=== PATIENT | male | born 1940 | race Caucasian/White ===

== ENCOUNTER 2018-11-30 05:36 | Observation (INO) | payer BC, MEDICARE ==
[~2018-11-30] VITALS: Ht 172.7 cm; Wt 112.7 kg
[2018-11-30] VITALS (22 sets, daily range): BP systolic 102–121; BP diastolic 57–71; PULSE 0–106; RESP 12–26; Ht 172.7 cm; Wt 112.7 kg
[2018-11-30] MEDS ORDERED: RANO500T2 PO (07:04)
[2018-11-30] MEDS ORDERED: CRES20 PO (07:04)
[2018-11-30] MEDS ORDERED: METO-336 PO (07:05)
[2018-11-30] MEDS ORDERED: CLOP75TA27 PO (07:05)
[2018-11-30] MEDS ORDERED: EZET10TA31 PO (07:05)
[2018-11-30] MEDS ORDERED: GLIM4TAB PO (07:05)
[2018-11-30] MEDS ORDERED: FER325 PO (07:06)
[2018-11-30] MEDS ORDERED: ASPI81TA52 PO (07:06)
[2018-11-30] MEDS ORDERED: METF100010 PO (07:06)
[2018-11-30] MEDS ORDERED: IODIXANOL LOCM 100 ML BTL ONE (07:28)
[2018-11-30] MEDS ORDERED: FENTAnyl 50 MCG/ML VIAL ONE (07:28)
[2018-11-30] MEDS ORDERED: SOD CHLORIDE 0.9% 500 ML ONE (07:28)
[2018-11-30] MEDS ORDERED: LIDOCAINE 1% (MDV) 20 ML INJ ONE (07:28)
[2018-11-30] MEDS ORDERED: MIDAZOLAM 1 MG/ML 2 ML INJ ONE (07:28)
[2018-11-30] MEDS ORDERED: VERAPAMIL 5 MG INJ ONE (08:19)
[2018-11-30] MEDS ORDERED: NITROGLYCERIN (IC) 100 MCG/ML INJ ONE (08:19)
[2018-11-30] MEDS ORDERED: IOHEXOL 350MG/ML 50 ML BTL ONE (08:38)
[2018-11-30] MEDS ORDERED: BIVALIRUDIN 250MG /NS 50 ML 100 ML IVPB ONE (08:38)
[2018-11-30] MEDS ORDERED: CLOPIDOGREL 300 MG TAB ONE (09:19)
[2018-11-30] MEDS ORDERED: ASPIRIN 81 MG TAB ONE (09:20)
[2018-11-30] MEDS ORDERED: SOD CHLORIDE 0.9% 1,000 ML IV SCH (09:24)
[2018-11-30] MEDS ORDERED: ACETAMINOPHEN 325 MG TAB PO PRN (09:30)
[2018-11-30] MEDS ORDERED: OXYCODONE/ACETAMINOPHEN (5/325) TAB PO PRN ×2 (09:30)
[2018-11-30] MEDS ORDERED: morphine 2 MG INJ IV PRN (09:30)
--- NOTE | 2018-11-30 09:38 | OPR ---
Date/Time of Note Date/Time of Note DATE: 11/30/18 TIME: 09: Operative Report Procedure Date: November 30, 2018 Preoperative Diagnosis ANGINA. ABNORMAL STRESS TEST Postoperative Diagnosis same Operation/Procedure Performed PCI LCX RI Surgeon see signature line Production Lead DONNELL Anesthesia Type: moderate sedation Estimated Blood Loss: minimal Transfusion none Specimen none Grafts/Implants none Complications none Procedure Description College Tutor: Mehdi Landa MD Indication: 78-year-old gentleman with history of coronary artery disease status post bypass surgery, PCI who has had recurrent refractory angina despite optimal medical therapy. Patient states also shows significant ischemia Procure performed: #1 left heart catheterization and selective right and left coronary angiogram #2 Right femoral angiogram and closure using a Perclose device 3. Successful PTCA and stenting of chronic total occlusion of ostial ramus intermediate using a 2.25 x 20 mm Synergy drug-eluting stent 4. Successful PTCA/stenting of the ostial left circumflex artery using a 2.5 x 16 mm Synergy drug-eluting stent 5. Selective left internal mammary artery angiography 6. Moderate sedation for more than 90 minutes Findings: 1. Left main: is moderate size. He has about 10 to 20% ostial stenosis and about 30 to 40% distal stenosis. 2. LAD: Is 100% occluded. HERRMANN to LAD is widely patent 3. Left circumflex artery: is nondominant. it has 90 % calcified stenosis ostially.---- .> 0% post PCI. OM1 appears to be chronically occluded which was also seen from previous angiography. No collaterals to it was noted to 4. RCA: is dominant. it has 100 % stenosis proximally RUTH to distal right coronary artery previously was noted to be patent. Angiography of this artery was not done to avoid contrast nephropathy 5. Ramus intermedius moderate-sized vessel. Has 100% occlusion ostially. After successful PTCA stenting of this lesion no significant residual stenosis left. 5. LVEDP is 12 with no significant gradient across the aortic valve Procedure in detail: Written informed consent with obtained after risks benefits and alternatives discussed with the patient in detail. risks including but not limited to risk of infection vascular complications, bleeding complications, OR stroke arrhythmia renal failure at even were discussed with the patient in detail. Patient was brought into the cardiac director of cardiac cath lab and placed in supine position. Right and left groin area was prepped and draped in regular sterile fashion and then he was in anesthetized using 1% lidocaine. Right femoral artery was cannulated and using modified seldinger technique a 6 Wolof sheath was placed in the femoral artery. Femoral angiogram was performed JL4 guiding catheter was advanced to engage the left main coronary artery angiographic view was obtained. JR4 catheter was advanced and engaged into the right coronary artery and angiographic view was obtained. Then the JR4 catheter was advanced to engage the left internal mammary artery angiography was obtained. We decided not to do geography of right internal mammary artery to we will consult nephrology since no ischemia was seen in that area he was previously noted to be patent. Then a car for was advanced to engage the left ventricle hemodynamics as recorded by pullback aortic pressure was measured. At this time we decided to perform PCI of the ostial left circumflex artery and ramus intermediate Artery. Sheath was changed to a 7 Wolof long sheath which was placed into the right femoral artery. A 7 Wolof Voda 3-/2 guiding catheter left main was advanced to engage the left main coronary artery. BMW wire was used and advanced across the lesion and placed distal to the lesion ramus intermediate with another engine pilot wire was used and advanced and crossed into the distal left circumflex artery. I used a 2.5 x 12 mm noncompliant balloon which was placed across the lesion in the left circumflex artery and then into the ramus intermediate and predilated the vessels. Then I used a 2.25 x 20 mm Synergy drug-eluting stent which was placed across the ostial ramus intermediate lesion and another 2.5 x 60 mm Synergy drug-eluting stent which was placed across the left circumflex artery lesion /both stent were deployed simultaneously deployed, using simultaneous kissing stent technique.. Finally a 2.75 x 8 mm noncompliant balloon was used in the left circumflex artery and a 2.5 x 12 mm noncompliant balloon was used at the ramus intermediate lesion and postdilated the stent and up to 18 Fanny. Subsequently simultaneous kissing ballooning was also done up to 12 fanny. Final angiographic view was obtained which showed RICK-3 flow no evidence of dissection and no significant residual stenosis at the site of the stent. perclose was successfully deployed. Patient tolerated the procedure well with no complication. contrast used: 150 cc Visipaque Conclusions: Successful PTCA/ stenting of the ostium of left circumflex artery and ramus intermediate artery from chronic total occlusion of the ostial ramus intermediate and 90 to 95% stenosis circumflex artery to no significant residual stenosis using simultaneous kissing stent technique. Recommendations: Aggressive medical therapy. aspirin indefinitely dual antiplatlet therapy with pain on Plavix MEHDI LANDA MD [facility] MEHDI LANDA MD November 30, 2018 09:38
[2018-11-30] MEDS ORDERED: SOD CHLORIDE 0.9% 1,000 ML IV ONE (10:30)
[2018-11-30] MEDS ORDERED: GLUCOSE GEL 15 GRAM TUBE PO PRN ×2 (11:30)
[2018-11-30] MEDS ORDERED: GLUCAGON 1 MG INJ IM PRN (11:30)
[2018-11-30] MEDS ORDERED: DEXTROSE 50% 50 ML SYRINGE IV PRN ×2 (11:30)
[2018-11-30] MEDS ORDERED: GLUCOSE GEL 15 GRAM TUBE BUCCAL PRN (11:30)
[2018-11-30] MEDS: ACCU-CHEK XX SCH ×3 (11:30→20:52)
--- NOTE | 2018-11-30 14:39 | HP ---
DATE OF ADMISSION: 11/30/2018 CHIEF COMPLAINT: Status post PCI. HISTORY OF PRESENT ILLNESS: This is a 78-year-old male with a past medical history of hypertension, history of coronary artery disease, status post CABG, status post multiple PCIs including to left cir cumflex, left marginal, history of diabetes, hypertension, dyslipidemia, who presents to [facility] to undergo elective cardiac catheterization per Dr. Landa. The patient was noted t o have positive outpatient Lexiscan. The patient also had noted symptoms of chest pain. The patient as a result came for voluntary cardiac catheterization. The patient had PCI to the diagonal and cir cumflex. Following the procedure, the patient was transferred to recovery. Currently, the patient i s stable. Denies any fevers, chills, nausea, vomiting. In terms of patient's renal history, the patient denies any prior history of acute kidney injury or c hronic kidney disease. Denies any hemoptysis, hematemesis or hematochezia. PAST MEDICAL HISTORY: History of hypertension, diabetes, history of chronic disease. PAST SURGICAL HISTORY: Status post CABG, status post PCI. FAMILY HISTORY: No family history of kidney disease. SOCIAL HISTORY: Does not drink, smoke or do drugs. MEDICATIONS: Have been reviewed. ALLERGIES: NO KNOWN DRUG ALLERGIES. REVIEW OF SYSTEMS: A 14-point review of systems conducted HPI. Pertinent positive stated in HPI oth erwise negative. PHYSICAL EXAMINATION VITAL SIGNS: Blood pressure is 104/63, respiration 19, pulse 71, temperature 96.5. HEENT: Head is normocephalic. NECK: Supple. HEART: Regular rate. LUNGS: Show diminished breath sounds at the base. ABDOMEN: Soft, nontender to palpation. No rebound or guarding. EXTREMITIES: Negative for clubbing, cyanosis. No edema. DERMATOLOGIC: No rashes. MUSCULOSKELETAL: No joint effusion. NEUROLOGIC: No focal deficits. LABORATORY DATA: Have been reviewed. ASSESSMENT AND PLAN: This is a 78-year-old male who presents with: 1. Coronary artery disease. The patient is status post PCI to the ramus and left circumflex. Our p jarrell is to continue current medical management. Continue antiplatelet therapy. Continue aspirin. Co ntinue Plavix. Continue Ranexa. I will follow up with cardiology for recommendations. 2. Renal insufficiency. Unclear if this is chronic kidney disease versus acute kidney injury. We w ill monitor patient closely for any signs of contrast-associated nephropathy. We will give patient g entle IV fluids. 3. Hyperkalemia. Monitor. The patient will be placed on low-potassium diet. 4. Hypertension. Continue current blood pressure regimen. 5. Diabetes. We will place the patient on insulin sliding scale and monitor closely. 6. Obesity. Continue dietary modification. 7. Anemia. Monitor hemoglobin and hematocrit levels. Please note, I spent an additional 30 minutes in egwu-[id number] time with the patient, discussing advan lester directives and code status. The patient is full code. Dictated By: ROS FAUST DO NR/NTS Conf#: [id number] DID#: [id number] CC: MEHDI LANDA MD;*End*
[2018-11-30] MEDS: RANOLAZINE (SR) 500 MG TAB PO SCH (20:51)
[2018-11-30] MEDS ORDERED: EZETIMIBE 10 MG TAB PO SCH (21:00)
[2018-11-30] MEDS ORDERED: ATORVASTATIN 80 MG TAB PO SCH (21:00)
[2018-12-01] VITALS: BP 112/56; PULSE 74; RESP 18
[2018-12-01 04:00] VITALS: BP 128/61; PULSE 74; PULSE 76; RESP 18
[2018-12-01] MEDS: ACCU-CHEK XX SCH ×2 (07:29→10:44)
--- NOTE | 2018-12-01 07:46 | CONS ---
Consult Date/Type/Reason Admit Date/Time November 30, 2018 at 09:24 Initial Consult Date Type of Consultation: cv Date/Time of Note DATE: 12/01/18 TIME: 07:44 Subjective Cardiology follow-up progress note Subjective Case discussed with staff and telemetry was reviewed patient has remained in sinus rhythm Patient with no chest pain or pressure no palpitation. Minimal groin discomfort He was able to walk Objective: General: no acute distress HEENT: NC/AT. pupils are equal. round. NECK: NO JVD. no stridor. CV: RRR. systolic murmur; no gallop or rubs. PULM: no wheezing or rhonchi. GI: SOFT, NT, ND, no rebound or guarding Extremity: trace B/L LE edema. no clubbing. neuro: awake and alert, OX3. Psych: calm and pleasant rectal: deferred Vascular: Right femoral with no bleeding or hematoma. No bruit noted Objective Vitals Vital Signs Date Temp Pulse Resp B/P (MAP) Pulse Ox O2 O2 Flow FiO2 Time Delivery Rate 12/01/18 74 04:00 12/01/18 98.3 18 128/61 93 04:00 (83) 11/30/18 Room Air 14:46 Intake and Output 11/30/18 11/30/18 12/01/18 1515:00 23:00 07:00 IntakeIntake Total 240 ml 600 ml 250 ml OutputOutput Total 400 ml BalanceBalance -160 ml 600 ml 250 ml Results/Medications Result Diagram: 12/01/18 0602 12/01/18 0602 Results 24 hrs Laboratory Tests Test 11/30/18 12:15 11/30/18 17:26 11/30/18 20:50 12/01/18 00:05 Bedside Glucose 139 135 101 Urine Color STRAW Urine Clarity CLEAR Urine pH 5.0 Urine Specific 1.010 [place] Urine Ketones NEGATIVE Urine Nitrite NEGATIVE Urine Bilirubin NEGATIVE Urine Urobilinogen NEGATIVE Urine Leukocyte NEGATIVE Esterase Urine Microscopic 0 RBC Urine Microscopic 0 WBC Urine Hemoglobin 1+ H Urine Random 41.12 Creatinine Urine Random Sodium 61 Urine Glucose NEGATIVE Urine Total Protein 11.0 Test 12/01/18 06:02 12/01/18 07:39 White Blood Count 8.3 Red Blood Count 4.45 L Hemoglobin 12.9 L Hematocrit 40.0 L Mean Corpuscular 89.9 Volume Mean Corpuscular 29.0 Hemoglobin Mean Corpuscular 32.3 Hemoglobin Concent Red Cell 14.0 Distribution Width Platelet Count 193 Mean Platelet Volume 10.8 H Immature 1.100 H Granulocytes % Neutrophils % 71.9 Lymphocytes % 17.2 Monocytes % 8.0 Eosinophils % 1.4 Basophils % 0.4 Nucleated Red Blood 0.0 Cells % Immature 0.090 H Granulocytes # Neutrophils # 6.0 Lymphocytes # 1.4 Monocytes # 0.7 Eosinophils # 0.1 Basophils # 0.0 Nucleated Red Blood 0.0 Cells # Sodium Level 139 Potassium Level 4.3 Chloride Level 105 Carbon Dioxide Level 25 Anion Gap 9 Blood Urea Nitrogen 20 Creatinine 1.21 Est Glomerular Filtrat Rate mL/min Glucose Level 146 Calcium Level 8.8 Magnesium Level 2.1 Total Bilirubin 0.5 Direct Bilirubin 0.00 Indirect Bilirubin 0.5 Aspartate Amino 18 Transf (AST/SGOT) Alanine 21 Aminotransferase (AL T/SGPT) Alkaline Phosphatase 56 Total Protein 7.0 Albumin 3.9 Globulin 3.10 Albumin/Globulin 1.25 Ratio Bedside Glucose 142 Home Meds Reported Medications Ferrous Sulfate* (Ferrous Sulfate*) 325 Mg Tabec, 325 MG PO DAILY, TAB 11/30/18 Aspirin (Low Dose Aspirin) 81 Mg Tablet.dr, 81 MG PO DAILY, #30 TAB 11/30/18 Metformin Hcl* (Metformin Hcl*) 1,000 Mg Tablet, 1000 MG PO WITH BREAKFAST DINNE, #60 TAB 11/30/18 Clopidogrel Bisulfate (Clopidogrel) 75 Mg Tablet, 75 MG PO DAILY, #30 TAB 11/30/18 Metoprolol Succinate* (Toprol XL*) 100 Mg Tab.sr.24h, 100 MG PO DAILY, #30 TAB 11/30/18 Glimepiride* (Glimepiride*) 4 Mg Tablet, 4 MG PO WITH BREAKFAST, TAB 11/30/18 Ezetimibe* (Zetia*) 10 Mg Tablet, 10 MG PO HS, TAB 11/30/18 Ranolazine* (Ranexa*) 500 Mg Tab.sr.12h, 500 MG PO Q12, TAB 11/30/18 Rosuvastatin Calcium* (Crestor*) 20 Mg Tablet, 20 MG PO QHS, #30 TAB 11/30/18 Medications Current Medications Acetaminophen (Tylenol Tab) 650 mg Q4H PRN PO PAIN; Start 11/30/18 at 09:30 Oxycodone/ Acetaminophen (Percocet (5/ 325)) 1 tab Q4H PRN PO PAIN; Start 11/30/18 at 09:30 Oxycodone/ Acetaminophen (Percocet (5/ 325)) 2 tab Q4H PRN PO PAIN; Start 11/30/18 at 09:30 Morphine Sulfate (morphine) 1 mg Q1H PRN IV PAIN LEVEL 6-10; Start 11/30/18 at 09:30 Aspirin (Halfprin) 81 mg DAILY PO ; Start 12/01/18 at 09:00 Clopidogrel Bisulfate (plaVIX) 75 mg DAILY PO ; Start 12/01/18 at 09:00 EZETIMIBE (Zetia) 10 mg HS PO Last administered on 11/30/18at 20:51; Admin Dose 10 MG; Start 11/30/18 at 21:00 Glimepiride (Amaryl) 4 mg WITH BREAKFAST PO ; Start 12/01/18 at 07:55 Metoprolol Succinate (Toprol Xl) 100 mg DAILY PO ; Start 12/01/18 at 09:00 Ranolazine (Ranexa) 500 mg Q12 PO Last administered on 11/30/18at 20:51; Admin Dose 500 MG; Start 11/30/18 at 21:00 Atorvastatin Calcium (Lipitor) 80 mg QHS PO Last administered on 11/30/18at 20:51; Admin Dose 80 MG; Start 11/30/18 at 21:00 Diagnostic Test (Pha) (Accu-Chek) 1 ea AC MEALS AND BEDTIME XX Last administered on 12/01/18at 07:29; Admin Dose 1 EA; Start 11/30/18 at 11:30 Miscellaneous Information 1 ea NOTE XX ; Start 11/30/18 at 11:30 Glucose (Glutose) 15 gm Q15M PRN PO DECREASED GLUCOSE; Start 11/30/18 at 11:30 Glucose (Glutose) 22.5 gm Q15M PRN PO DECREASED GLUCOSE; Start 11/30/18 at 11:30 Dextrose (D50w Syringe) 25 ml Q15M PRN IV DECREASED GLUCOSE; Start 11/30/18 at 11:30 Dextrose (D50w Syringe) 50 ml Q15M PRN IV DECREASED GLUCOSE; Start 11/30/18 at 11:30 Glucagon (Glucagen) 1 mg Q15M PRN IM DECREASED GLUCOSE; Start 11/30/18 at 11:30 Glucose (Glutose) 15 gm Q15M PRN BUCCAL DECREASED GLUCOSE; Start 11/30/18 at 11:30 Assessment/Plan Hospital Course (Demo Recall) 1. Severe angina and abnormal stress test: Now status post PCI of left circumflex artery and ramus intermediate . Coronary artery disease status post NC status post PCI Hypertension Renal insufficiency improved Diabetes Dyslipidemia under good control Recommendation: Continue with aspirin and Plavix Continue the beta-margarita Hold metformin today and resume tomorrow DC planning when okay with internal medicine MEHDI GARCIA MD [facility] MEHDI GARCIA MD December 01, 2018 07:46
[2018-12-01 07:51] VITALS: BP 118/67; PULSE 80; RESP 20
[2018-12-01] MEDS ORDERED: GLIMEPIRIDE 4 MG TAB PO SCH (07:55)
[2018-12-01 08:00] VITALS: PULSE 85
[2018-12-01] MEDS: RANOLAZINE (SR) 500 MG TAB PO SCH (08:15)
[2018-12-01] MEDS ORDERED: METOPROLOL (XL) 100 MG TAB PO SCH (09:00)
[2018-12-01] MEDS ORDERED: ASPIRIN (EC) 81 MG TAB PO SCH (09:00)
[2018-12-01] MEDS ORDERED: CLOPIDOGREL 75 MG TAB PO SCH (09:00)
--- NOTE | 2018-12-01 20:34 | DS ---
DATE OF ADMISSION: 11/30/2018 DATE OF DISCHARGE: 12/01/2018 HOSPITAL COURSE: This is a 78-year-old male with a past medical history of hypertension, coronary ar mary disease, history of coronary artery bypass graft, history of dyslipidemia, presents to [facility] to undergo elective cardiac catheterization by Dr. Landa. The patient noted to have a positive outpatient Lexiscan scan and also symptoms of chest pain. The patient as a result wa s admitted and underwent cardiac catheterization with PCI to diagonal and circumflex. The patient fo llowing the procedure was admitted to telemetry and was stable overnight. There were no episodes of chest pain, shortness of breath, nausea, vomiting. Currently, at this time, the patient is stable, w ill be discharged home to follow up with his primary care physician and Dr. Landa, take out waitress, in 1 to 2 weeks' time. At the time of discharge, the patient is stable, in no acute distress. FINAL DIAGNOSES: 1. Coronary artery disease, status post percutaneous coronary intervention to left circumflex and ra mus. 2. Renal insufficiency, resolved. 3. Hyperkalemia, resolved. 4. Hypertension. Continue current blood pressure regimen. 5. Diabetes. 6. Obesity. 7. Anemia. CONDITION ON DISCHARGE: At the time of discharge, the patient is stable, in no acute distress. FINAL MEDICATIONS: The patient will resume home regimen of: 1. Aspirin. 2. Plavix. 3. Zetia. 4. Ferrous sulfate. 5. Glimepiride. 6. Metformin. 7. Metoprolol. 8. Ranexa 9. Crestor. Please note I spent over 30 minutes of time preparing the patient's discharge. Dictated By: ROS FAUST DO NR/NTS Conf#: [id number] DID#: [id number] CC: MEHDI LANDA MD;*EndCC*
== END 2018-12-01 11:30 | disposition home or self-care (01) ==
LOC: SDS 05:36 → CCL 05:36 → REC 09:24 → TEL 15:08
PROVIDERS: ADMIT Internal Medicine Interventional Cardiology; ATTEND Internal Medicine Interventional Cardiology
DX: I25.118 Atherosclerotic heart disease of native coronary artery with other forms of angina pectoris (principal); Z95.1 Presence of aortocoronary bypass graft; E78.5 Hyperlipidemia, unspecified; I10 Essential (primary) hypertension; E11.9 Type 2 diabetes mellitus without complications; N28.9 Disorder of kidney and ureter, unspecified; Z79.82 Long term (current) use of aspirin; Z79.84 Long term (current) use of oral hypoglycemic drugs
CPT/HCPCS: 80053; 80061; 81001; 81003; 82043; 82550; 82553; 82962; 83735; 84155; 84300; 84484; 85025; 85610; 85730; 92928; 92929; 93005; 93458; C1725; C1760; C1874; C1894; G0378; J0583; J1644; J2250; J3010; J7040; Q9967